=== PATIENT | female | born 1965 | race African-American/Black ===

== ENCOUNTER 2020-08-30 20:09 | Emergency (ER) | payer BC ==
[~2020-08-30] VITALS: Ht 157.5 cm; Wt 65.8 kg
[2020-08-30] MEDS ORDERED: HYDROCODONE/APAP 5MG-325MG TAB PO STA (20:22)
[2020-08-30] MEDS ORDERED: TYLENOL # 31 EA PO (21:56)
[2020-08-30] MEDS ORDERED: ONDANSETRON ODT4 MG PO (21:56)
[2020-08-30 22:24] VITALS: BP 116/70
== END 2020-08-30 22:24 | disposition home or self-care (01) ==
LOC: FSED 20:18
DX: M25.562 Pain in left knee (principal); S82.142A Displaced bicondylar fracture of left tibia, initial encounter for closed fracture; W17.89XA Other fall from one level to another, initial encounter
CPT/HCPCS: 99284